=== PATIENT | female | born 1935 | race Caucasian/White ===

== ENCOUNTER → 2017-02-08 | Outpatient (CLI) | payer MEDICARE, BC | LOC: MAMMO 13:02 | PROVIDERS: ATTEND Obstetrics & Gynecology | DX: Z12.31 Encounter for screening mammogram for malignant neoplasm of breast (principal) | CPT/HCPCS: 77063; G0202 ==

== ENCOUNTER → 2017-03-02 | Outpatient (CLI) | payer MEDICARE, BC ==
--- NOTE | 2017-03-02 14:36 | US ---
EXAM DESCRIPTION: Breast,Left: Ultrasound. CLINICAL HISTORY: 81 yearsFemaleABNORMAL MAMM COMPARISON: Digital 3-D screening tomosynthesis left breast 02/08/2017. TECHNIQUE: Transcutaneous scanning of the left breast utilizing two-dimensional modes. Scanning performed by the nurse's aides teacher and Dr. Olson. FINDINGS: Scanning of the upper-outer quadrant of the left breast from the nipple to 5 cm from the nipple. Heterogeneous fibroglandular and fatty tissues. No discrete solid mass or cyst. No parenchymal edema or large calcification. IMPRESSION: BI-RADS CATEGORY: 2 - BENIGN FINDINGS. FOLLOW UP: Return to routine digital left breast mammographic screening, one year interval from January 2017. The findings and the follow-up plan were reviewed in person with the patient after the examination. Written communication explaining the IMPRESSION and follow-up, will be mailed to the patient and referring health care provider. According to the [employer], yearly mammograms are recommended starting at age 40 and continuing as long as a woman is in good health. Any breast change noted on a breast self-exam should be reported promptly to the patient's healthcare provider. Breast MRI is recommended for women with an approximately 20-25% or greater lifetime risk of breast cancer, including women with a strong family history of breast or ovarian cancer and women who have been treated for Hodgkin's disease. A negative mammographic report should not delay tissue diagnosis in patients with significant clinical history or physical findings. Extremely dense breast tissue limits the sensitivity of digital mammography. Electronically signed by: Aftab Olson MD 03/02/2017 2:35 PM CDT
== END | disposition home or self-care (01) ==
LOC: US 13:49
PROVIDERS: ATTEND Obstetrics & Gynecology
DX: R92.8 Other abnormal and inconclusive findings on diagnostic imaging of breast (principal)

== ENCOUNTER → 2018-04-18 | Outpatient (CLI) | payer MEDICARE, BC ==
--- NOTE | 2018-04-19 16:35 | MAM ---
EXAM DESCRIPTION: 3D Screening, Left : Digital Mammography. CLINICAL HISTORY: 82 years Female SCREENING . Right breast cancer with mastectomy 2014. No family history of breast cancer. Childbirth. Postmenopausal 30 years. HRT 5 or more years ago. Lifetime risk of developing breast cancer (Tyrer-Cuzick model)(%): Not calculated due to personal history of breast cancer. COMPARISON: Left breast screening digital tomosynthesis 02/08/2017. TECHNIQUE: Left CC and MLO projection full-field images, digital tomosynthesis mammographic technique. Left digital 2-D full-field MLO images. CAD not available for tomosynthesis or 2-D images. FINDINGS: Left breast parenchymal density pattern is: Scattered areas of fibroglandular density. No skin thickening or nipple retraction. Scattered solitary microcalcifications. Secretory calcifications are also present. Vascular Calcifications No new focal, stellate mass or density, focal asymmetry , and no suspicious microcalcifications left breast. Stable mammograms compared to prior study. Taking into account, differences in mammographic technique. IMPRESSION: Benign exam. BIRAD CATEGORY: 2 BENIGN FINDINGS. RECOMMENDATIONS: FOLLOW UP: Routine digital bilateral mammographic screening, one year interval from March 2018. Written communication explaining the IMPRESSION and follow-up, will be mailed to the patient and referring health care provider. According to the [employer], yearly mammograms are recommended starting at age 40 and continuing as long as a woman is in good health. Any breast change noted on a breast self-exam should be reported promptly to the patient's healthcare provider. Breast MRI is recommended for women with an approximately 20-25% or greater lifetime risk of breast cancer, including women with a strong family history of breast or ovarian cancer and women who have been treated for Hodgkin's disease. A negative mammographic report should not delay tissue diagnosis in patients with significant clinical history or physical findings. Extremely dense breast tissue limits the sensitivity of digital mammography. Electronically signed by: Aftab Olson MD 04/19/2018 4:34 PM DIRECTOR PRODUCT DEVELOPMENT
== END ==
LOC: MAMMO 15:19
PROVIDERS: ATTEND Surgery
DX: Z12.31 Encounter for screening mammogram for malignant neoplasm of breast (principal)

== ENCOUNTER → 2019-07-31 | Outpatient (CLI) | payer MEDICARE, BC ==
--- NOTE | 2019-08-01 15:50 | MAM ---
EXAM DESCRIPTION: 3D Screening BILATERAL : Digital Mammography. CLINICAL HISTORY: 83 years Female ANNUAL SCREENING . Personal history of breast cancer right breast 2014. No complaints. No remote family history of breast cancer. Menarche age 8. Childbirth age 26. Menopause age 48. HRT 5 or more years ago. Lifetime risk of developing breast cancer (Tyrer-Cuzick model)(%): Not calculated COMPARISON: Left breast screening digital breast tomosynthesis March 2018 and January 2017. Directed diagnostic left breast ultrasound February 2017. TECHNIQUE: Left breast CC and MLO projection full-field images, digital tomosynthesis mammographic technique. Left breast digital 2-D full-field MLO images. CAD available for 2-D images. FINDINGS: Left breast parenchymal density pattern is: Scattered areas of fibroglandular density. No skin thickening or nipple retraction. Solitary microcalcifications. Skin mole markers. Vascular calcifications. No new focal, stellate mass or density, focal asymmetry , and no suspicious microcalcifications left breast. Stable mammograms compared to prior study. IMPRESSION: Benign exam. BIRAD CATEGORY: 2 BENIGN FINDINGS. RECOMMENDATIONS: FOLLOW UP: Routine digital left breast mammographic screening, one year interval from July 2019. Written communication explaining the IMPRESSION and follow-up, will be mailed to the patient and referring health care provider. According to the [employer], yearly mammograms are recommended starting at age 40 and continuing as long as a woman is in good health. Any breast change noted on a breast self-exam should be reported promptly to the patient's healthcare provider. Breast MRI is recommended for women with an approximately 20-25% or greater lifetime risk of breast cancer, including women with a strong family history of breast or ovarian cancer and women who have been treated for Hodgkin's disease. A negative mammographic report should not delay tissue diagnosis in patients with significant clinical history or physical findings. Extremely dense breast tissue limits the sensitivity of digital mammography. Electronically signed by: Aftab Olson MD 08/01/2019 3:48 PM CDT
== END ==
LOC: MAMMO 12:52
PROVIDERS: ATTEND Obstetrics & Gynecology
DX: Z12.31 Encounter for screening mammogram for malignant neoplasm of breast (principal)